=== PATIENT | female | born 1940 | race Two or more races ===

== ENCOUNTER → 2024-06-28 | Outpatient (CLI) | payer MEDICARE, BC, SELFPAY ==
[2024-06-28 14:17] LABS: Alanine Aminotransferase 19 U/L (10-49); Albumin, Serum 4.9 gm/dL (3.4-4.8); Albumin/Globulin Ratio 2.1 (1.2-2.2); Alkaline Phosphatase 61 U/L (46-116); Anion Gap 8 (7-16); Aspartate Amino Transferase 18 U/L (0-34); BUN/Creatinine Ratio 16 Ratio (12-20); Bilirubin,Total 0.5 mg/dL (0.3-1.2); Blood Urea Nitrogen 16 mg/dL (9-23); Calcium 9.8 mg/dL (8.3-10.6); Calcium (Corrected) 9.8 mg/dL (8.5-10.1); Chloride 101 mMol/L (98-107); Globulin 2.3 gm/dL (2.3-3.5); Glucose 93 mg/dL (74-106); Osmolality,Calculated 273 (275-295); Potassium 3.8 mMol/L (3.4-5.1); Sodium 136 mMol/L (136-145); Total Protein 7.2 gm/dL (5.7-8.2); eGFR 56 See Note
== END | disposition home or self-care (01) ==
LOC: COPL 13:05
PROVIDERS: PCP Specialist; Referring Provider Internal Medicine; Visit Provider Internal Medicine
DX: I10 Essential (primary) hypertension (principal); M48.56XA Collapsed vertebra, not elsewhere classified, lumbar region, initial encounter for fracture; M81.0 Age-related osteoporosis without current pathological fracture; Z13.820 Encounter for screening for osteoporosis; Z78.0 Asymptomatic menopausal state; Z79.83 Long term (current) use of bisphosphonates
CPT/HCPCS: 36415; 80053

== ENCOUNTER → 2024-09-07 | Outpatient (CLI) | payer MEDICARE, BC, SELFPAY ==
--- NOTE | 2024-09-07 08:45 | XR_ITS ---
Examination: Breast ultrasound complete, bilateral Date and time of exam: September 07, 2024 0846 hours INDICATIONS: Ultrasound February 22, 2024 BI-RADS 4 suspicious mass retroareolar right breast Technique: Real-time grayscale ultrasonographic imaging bilateral breasts, including all 4 quadrants as well as nipple retroareolar and axillary regions. Findings: Sonographic images right breast 11:00 nodule 8 x 8 mm lobular margins Retroareolar nodule circumscribed 6 x 6 mm Sonographic images left breast 2:00 oval mass lobular margins 8 x 5 mm 2:00 cyst 3 x 3 mm 2:00 nodule lobular margins 8 x 6 mm 7:00 cyst 3 x 3 mm IMPRESSION: BI-RADS Category 3: Probably benign findings One additional 6 month bilateral breast sonography follow-up is needed to document stability of multiple nodules described above
== END | disposition home or self-care (01) ==
PROVIDERS: PCP Specialist; Referring Provider Student in an Organized Health Care Education/Training Program; Visit Provider Student in an Organized Health Care Education/Training Program
DX: N63.41 Unspecified lump in right breast, subareolar (principal); N63.21 Unspecified lump in the left breast, upper outer quadrant; N63.11 Unspecified lump in the right breast, upper outer quadrant
CPT/HCPCS: 76641

== ENCOUNTER → 2024-12-14 | Outpatient (CLI) | payer MEDICARE, BC, SELFPAY ==
--- NOTE | 2024-12-14 09:40 | XR_ITS ---
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
== END | disposition home or self-care (01) ==
LOC: CDIM 09:10
PROVIDERS: PCP Specialist; Referring Provider Specialist; Visit Provider Specialist
DX: M19.042 Primary osteoarthritis, left hand (principal); M25.742 Osteophyte, left hand; M24.445 Recurrent dislocation, left finger
CPT/HCPCS: 73130

== ENCOUNTER → 2025-01-01 | Outpatient (CLI) | payer MEDICARE, BC, SELFPAY ==
[2025-01-01 14:14] LABS: Alanine Aminotransferase 15 U/L (10-49); Albumin, Serum 4.6 gm/dL (3.4-4.8); Albumin/Globulin Ratio 1.8 (1.2-2.2); Alkaline Phosphatase 58 U/L (46-116); Anion Gap 5 (7-16); Aspartate Amino Transferase 22 U/L (0-34); BUN/Creatinine Ratio 11 Ratio (12-20); Bilirubin,Total 0.5 mg/dL (0.3-1.2); Blood Urea Nitrogen 11 mg/dL (9-23); Calcium 9.9 mg/dL (8.3-10.6); Calcium (Corrected) 9.9 mg/dL (8.5-10.1); Carbon Dioxide 29.2 mMol/L (20.0-31.0); Chloride 103 mMol/L (98-107); Creatinine (Component) 1.0 mg/dL (0.6-1.3); Globulin 2.5 gm/dL (2.3-3.5); Glucose 100 mg/dL (74-106); Osmolality,Calculated 273 (275-295); Potassium 4.6 mMol/L (3.4-5.1); Sodium 137 mMol/L (136-145); Total Protein 7.1 gm/dL (5.7-8.2); eGFR 56 See Note
== END | disposition home or self-care (01) ==
LOC: SLAB 08:37
PROVIDERS: PCP Specialist; Referring Provider Internal Medicine; Visit Provider Internal Medicine
DX: I10 Essential (primary) hypertension (principal); M48.56XA Collapsed vertebra, not elsewhere classified, lumbar region, initial encounter for fracture; M81.0 Age-related osteoporosis without current pathological fracture; Z13.820 Encounter for screening for osteoporosis; Z78.0 Asymptomatic menopausal state; Z79.83 Long term (current) use of bisphosphonates
CPT/HCPCS: 36415; 80053

== ENCOUNTER 2025-02-06 08:40 | Day surgery (SDC) | payer MEDICARE, BC, SELFPAY ==
[2025-02-05 12:21] VITALS: BMI 21.4
[2025-02-06] VITALS (11 sets, daily range): BP systolic 110–175; BP diastolic 55–85; PULSE 74–94; RESP 12–20; TEMP 36.8–36.9; O2SAT 95–100; BMI 20.5
[2025-02-06] MEDS: SODIUM CHLORIDE 0.9% 500 ML 500 ML 20 ML IV (11:19)
[2025-02-06] MEDS: MIDAZOLAM INJ 1 MG/ML VIAL 2 ML (ASD USE ONLY) 2 MG IVP (11:30)
[2025-02-06] MEDS: fentaNYL CIT INJ 50 mCg/ML AMP 2ML (ASD USE ONLY) IVP (11:30)
== END 2025-02-06 12:15 | disposition home or self-care (01) ==
PROVIDERS: PCP Specialist; Referring Provider Specialist; Visit Provider Specialist
PROC: 0DBE8ZX Excision of Large Intestine, Via Natural or Artificial Opening Endoscopic, Diagnostic (ICD-10-PCS; CPT 45380; principal; 2025-02-06 10:15)
DX: R19.4 Change in bowel habit (principal); K64.9 Unspecified hemorrhoids; Z86.0101 Personal history of adenomatous and serrated colon polyps; K57.30 Diverticulosis of large intestine without perforation or abscess without bleeding
CPT/HCPCS: 45378; J1200; J2250; J3010; J7999

== ENCOUNTER → 2025-03-11 | Outpatient (CLI) | payer MEDICARE, BC, SELFPAY ==
--- NOTE | 2025-03-11 09:15 | XR_ITS ---
Examination: Breast ultrasound complete, bilateral Date and time of exam: March 11, 2025 0851 hours INDICATIONS: Bilateral breast sonography September 07, 2024 right breast 11:00 nodule 8 mm retroareolar nodule 6 mm left breast 2:00 nodule 8 mm 2:00 nodule 8 mm Technique: Real-time grayscale ultrasonographic imaging bilateral breasts, including all 4 quadrants as well as nipple retroareolar and axillary regions. Findings: Sonographic images right breast Retroareolar nodule 6 x 5 mm circumscribed Retroareolar nodule 5 x 10 mm with breast biopsy marker lobular margins Sonographic images left breast 2:00 nodule lobular margins 7 x 6 mm 7:00 cyst 3 x 4 mm IMPRESSION: BI-RADS Category 3: Probably benign findings Continued 6 month follow-up bilateral breast sonography is needed to document stability of nodules described above
== END | disposition home or self-care (01) ==
LOC: CDIM 08:32
PROVIDERS: PCP Specialist; Referring Provider Student in an Organized Health Care Education/Training Program; Visit Provider Student in an Organized Health Care Education/Training Program
DX: N63.41 Unspecified lump in right breast, subareolar (principal); N63.21 Unspecified lump in the left breast, upper outer quadrant
CPT/HCPCS: 76641